=== PATIENT | male | born 1990 | race Caucasian/White ===

== ENCOUNTER 2021-05-22 10:14 | Emergency (ER) | payer OTHER, MEDICAID, SELFPAY ==
[2021-05-22 10:25] VITALS: BP 143/86; PULSE 77; RESP 17; TEMP 35.6; O2SAT 99; BMI 26.7
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
== END 2021-05-22 11:12 | disposition home or self-care (01) ==
PROVIDERS: Emergency Provider Emergency Medicine; PCP Internal Medicine
DX: Z04.1 Encounter for examination and observation following transport accident (principal)
CPT/HCPCS: 99283